=== PATIENT | female | born 1975 | race Caucasian/White ===

== ENCOUNTER → 2017-04-16 | Outpatient (CLI) | payer BC ==
--- NOTE | 2017-04-21 10:02 | MM ---
Reason for exam: screening (asymptomatic). Last mammogram was performed 5 years and 8 months ago. History: Taking hormonal contraceptives beginning at age 20. Physical Findings: A clinical breast exam by your physician is recommended on an annual basis and results should be correlated with mammographic findings. MG 3D Screening Mammo W/Cad Bilateral CC and MLO view(s) were taken. Prior study comparison: August 14, 2011, [facility] DIGITAL LEFT BREAST MAMMOGRAM w/CAD. August 11, 2011, bilateral digital screening mammo w/CAD. The breast tissue is heterogeneously dense. This may lower the sensitivity of mammography. No suspicious abnormality. No significant changes when compared with prior studies. ASSESSMENT: Negative, BI-RAD 1 RECOMMENDATION: Routine screening mammogram of both breasts in 1 year.
== END | disposition home or self-care (01) ==
LOC: RADMAMWWP 15:30
PROVIDERS: ATTEND Obstetrics & Gynecology
DX: Z12.31 Encounter for screening mammogram for malignant neoplasm of breast (principal)
CPT/HCPCS: 77063; 77067

== ENCOUNTER 2017-09-23 17:20 | Observation (INO) | payer BC ==
[2017-09-23] MEDS ORDERED: NITROGLYCERIN OINT 1 INCH/GM PACKET TOPICAL STA (18:33)
[2017-09-23] MEDS ORDERED: SODIUM CHLORIDE 0.9% 1,000 ML IV STA (18:33)
--- NOTE | 2017-09-23 18:58 | ED ---
Chest Pain HPI - General Chief Complaint: Chest Pain Stated Complaint: CHEST PAIN Time Seen by Provider: 09/23/17 18:24 Source: patient Mode of arrival: wheelchair Limitations: no limitations - History of Present Illness Initial Comments: 42 years old female comes in with a chest pain ongoing for about a off-and-on for 3 weeks she had EKG done at the family doctor's office there were some changes noticed that and she stated her EKG was abnormal and he has no history of heart disease in the past she is on a controls and she denies any tobacco use. She also complaining about the headache and dizziness off and on for the last 6 weeks she said her blurred vision in the right eye there was there for a few days then now is back to normal. I does complain about ongoing headache and chest pain no abdominal pain chest pain doesn't get worse with deep breaths no abdominal pain no frequency urgency dysuria no symptoms of TIA or CVA - Related Data Home Medications Medication Instructions Recorded Confirmed Norethindrone-E.estradiol-Iron 1 tab PO DAILY 09/23/17 09/23/17 [Junel Fe 1 mg-20 Mcg Tablet] Allergies Allergy/AdvReac Type Severity Reaction Status Date / Time Sulfa (Sulfonamide Allergy Rash/Hives Verified 09/23/17 18:49 Antibiotics) tetanus toxoid, adsorbed Allergy Swelling Verified 09/23/17 18:49 Review of Systems ROS Statement: Those systems with pertinent positive or pertinent negative responses have been documented in the HPI. ROS Other: All systems not noted in ROS Statement are negative. EKG Findings - EKG Comments: EKG Findings:: KG is normal sinus ventricular rate is 86 ID interval is 156 QRS duration is 98 QT/QTc is 380/454 review of this EKG does not reveal any ST elevation noticed ST depression in lead 2 and S2 depression in lead 3 and T wave inversion as well also noticed mild ST depression in V4 V5 and V6 Past Medical History Past Medical History: No Reported History History of Any Multi-Drug Resistant Organisms: None Reported Past Surgical History: No Surgical Hx Reported Past Psychological History: No Psychological Hx Reported Smoking Status: Never smoker Past Alcohol Use History: None Reported Past Drug Use History: None Reported - Past Family History Father Family Medical History: Thyroid Disorder General Exam - General Exam Comments Initial Comments: General: The patient is awake and alert, in no distress, and does not appear acutely ill. Skin: Skin is warm and dry and no rashes or lesions are noted. Eye: Pupils are equal, round and reactive to light, extra-ocular movements are intact; there is normal conjunctiva bilaterally. Ears, nose, mouth and throat: There are moist mucous membranes and no oral lesions. Neck: The neck is supple, there is no tenderness or JVD. Cardiovascular: There is a regular rate and rhythm. No murmur, rub or gallop is appreciated. Respiratory: To auscultation bilateral, no wheezing no rhonchi no distress respiratory morin noticed Gastrointestinal: Mildly tender right upper quadrant area Back: There is no tenderness to palpation in the midline. There is no obvious deformity. Musculoskeletal: Normal ROM, no tenderness, There is no pedal edema. There is no calf tenderness or swelling. No cords were appreciated. Neurological: CN II-XII intact, Cranial nerves III through XII are intact. There are no obvious motor or sensory deficits. Coordination appears grossly intact. Speech is normal. Psychiatric: Cooperative, appropriate mood & affect, normal judgment. Limitations: no limitations Course Vital Signs 09/23/17 09/23/17 09/23/17 17:35 18:57 20:30 Temperature 98.7 F Pulse Rate 88 89 78 Respiratory 18 16 16 Rate Blood Pressure 148/96 129/80 112/78 O2 Sat by Pulse 100 100 99 Oximetry Disposition Clinical Impression: Chest pain, Headache Disposition: ADMITTED IP TO THIS HOSP Condition: Good
[2017-09-23 19:00] VITALS: RESP 16
[2017-09-23 19:09] LABS: Basophils % (A) 0 %; Eosinophils # (A) 0.1 k/uL (0-0.7); Eosinophils % (A) 2 %; HCT 41.1 % (34.0-46.0); HGB 13.5 gm/dL (11.4-16.0); Lymphocytes % (A) 36 %; MCH 28.9 pg (25.0-35.0); MCHC 32.8 g/dL (31.0-37.0); MCV 88.2 fL (80.0-100.0); Monocytes # (A) 0.4 k/uL (0-1.0); Monocytes % (A) 7 %; Neutrophils # (A) 2.9 k/uL (1.3-7.7); Neutrophils % (A) 52 %; Platelet Count 254 k/uL (150-450); RBC 4.66 m/uL (3.80-5.40); RDW 12.7 % (11.5-15.5); WBC 5.6 k/uL (3.8-10.6)
[2017-09-23 19:17] LABS: Partial Thromboplastin Time 23.9 sec (22.0-30.0); Prothrombin Time 9.7 sec (9.0-12.0)
[2017-09-23 19:20] LABS: ALT 23 U/L (9-52); AST 28 U/L (14-36); Albumin 4.9 g/dL (3.5-5.0); Alkaline Phosphatase 62 U/L (38-126); Anion Gap 14 mmol/L; Blood Urea Nitrogen 11 mg/dL (7-17); Calcium 9.6 mg/dL (8.4-10.2); Carbon Dioxide 22 mmol/L (22-30); Chloride 104 mmol/L (98-107); Glucose 89 mg/dL (74-99); Sodium 140 mmol/L (137-145); Total Bilirubin 1.3 mg/dL (0.2-1.3); Total Protein 8.2 g/dL (6.3-8.2)
[2017-09-23] MEDS ORDERED: MORPHINE SULFATE 2 MG/ML SYRINGE IVP PRN (19:29)
--- NOTE | 2017-09-23 19:35 | XR ---
EXAMINATION TYPE: XR chest 2V DATE OF EXAM: 09/23/2017 COMPARISON: NONE HISTORY: Chest pain TECHNIQUE: Frontal and lateral views of the chest are obtained. FINDINGS: Heart and mediastinum are normal. Lungs are clear. Diaphragm is normal. There are chest le ads. Bony thorax is intact. IMPRESSION: Normal chest
--- NOTE | 2017-09-23 19:35 | CT ---
EXAMINATION TYPE: CT brain wo con DATE OF EXAM: 09/23/2017 COMPARISON: None HISTORY: Headache and chest pain. CT DLP: 735.2 mGycm. Automated Exposure Control for Dose Reduction was Utilized. TECHNIQUE: CT scan of the head is performed without contrast. FINDINGS: Ventricles and sulci appear normal. There is no mass effect nor midline shift. There is no sign of intracranial hemorrhage. The calvarium is intact. IMPRESSION: Negative CT scan of the brain.
[2017-09-23 19:39] LABS: Creatine Kinase 74 U/L (30-135)
[2017-09-23 19:52] LABS: Creatine Kinase MB <0.2 ng/mL (0.0-2.4); Troponin I <0.012 ng/mL (0.000-0.034)
[2017-09-23] MEDS ORDERED: ENOXAPARIN 80 MG/0.8 ML SYRINGE SQ STA (20:00)
[2017-09-23 22:35] VITALS: BMI 25.4
[2017-09-23] MEDS ORDERED: KETOROLAC 30 MG/ML 1 ML VIAL IVP PRN (23:07)
[2017-09-24] MEDS ORDERED: KETOROLAC 30 MG/ML 1 ML VIAL IVP SCH
[2017-09-24 01:40] LABS: Creatine Kinase 60 U/L (30-135)
[2017-09-24 01:53] LABS: Creatine Kinase MB <0.2 ng/mL (0.0-2.4); Troponin I <0.012 ng/mL (0.000-0.034)
[2017-09-24 07:19] LABS: Cholesterol 231 mg/dL (<200); HDL Cholesterol 73 mg/dL (40-60); LDL Cholesterol,Calculated 148 mg/dL (0-99); Triglycerides 51 mg/dL (<150)
[2017-09-24 07:29] LABS: Creatine Kinase 54 U/L (30-135)
[2017-09-24 07:42] LABS: Creatine Kinase MB <0.2 ng/mL (0.0-2.4); Troponin I <0.012 ng/mL (0.000-0.034)
[2017-09-24] MEDS ORDERED: ENOXAPARIN 80 MG/0.8 ML SYRINGE SQ SCH (09:00)
[2017-09-24] MEDS ORDERED: ASPIRIN 325 MG TAB PO SCH (09:00)
--- NOTE | 2017-09-24 10:47 | ECHOF ---
Referral Reason:chest pain MEASUREMENTS -------- HEIGHT: 167.6 cm WEIGHT: 71.7 kg BP: 109/71 RVIDd: 2.5 cm (< 3.3) IVSd: 0.9 cm (0.6 - 1.1) LVIDd: 4.2 cm (3.9 - 5.3) LVPWd: 0.8 cm (0.6 - 1.1) IVSs: 1.3 cm LVIDs: 2.7 cm LVPWs: 1.3 cm LA Diam: 2.6 cm (2.7 - 3.8) Ao Diam: 3.0 cm (2.0 - 3.7) AV Cusp: 1.8 cm (1.5 - 2.6) MV EXCURSION: 16.139 mm (> 18.000) MV EF SLOPE: 150 mm/s (70 - 150) EPSS: 0.2 cm MV E Trevin: 1.02 m/s MV DecT: 192 ms MV A Trevin: 0.74 m/s MV E/A Ratio: 1.38 FINDINGS -------- Sinus rhythm. This was a technically good study. The left ventricular size is normal. Left ventricular wall thickness is normal. Overall left vent ricular systolic function is normal with, an EF between 60 - 65 %. The right ventricle is normal in size and function. The left atrial size is normal. The right atrium is normal in size. The aortic valve is trileaflet and appears structurally normal. Mild mitral regurgitation is present. The tricuspid valve appears structurally normal. Trace/mild (physiologic) pulmonic regurgitation. The aortic root size is normal. Normal inferior vena cava with normal inspiratory collapse consistent with estimated right atrial pre ssure of 5 mmHg. There is no pericardial effusion. CONCLUSIONS -------- 1. Sinus rhythm. 2. This was a technically good study. 3. The left ventricular size is normal. 4. Left ventricular wall thickness is normal. 5. Overall left ventricular systolic function is normal with, an EF between 60 - 65 %. 6. The right ventricle is normal in size and function. 7. The left atrial size is normal. 8. The right atrium is normal in size. 9. The aortic valve is trileaflet and appears structurally normal. 10. Mild mitral regurgitation is present. 11. The tricuspid valve appears structurally normal. 12. Trace/mild (physiologic) pulmonic regurgitation. 13. The aortic root size is normal. 14. Normal inferior vena cava with normal inspiratory collapse consistent with estimated right atrial pressure of 5 mmHg. 15. There is no pericardial effusion. SAMPLE TESTER GRINDER: Tiffany Schuster RDCS
--- NOTE | 2017-09-24 11:21 | P.CRDCN ---
History of Present Illness History of present illness: Mrs. Frank is a pleasant 42-year-old female with no significant past medical history. She denies history of coronary artery disease, hypertension, diabetes mellitus or dyslipidemia. She also has no family history or premature heart disease. She has never seen a vegetable canner for any reason. We have been asked to see her in consultation for chest pain. She states she has been suffering with a headache off and on for the last 5 weeks. When she has a headache and lays down she notices a pounding in her chest like her heart is racing and she can feel her pulse in her head. Yesterday while at work she felt a pain in the mid-sternal region that felt like a bubble in her chest. The pain was intermittent and did not radiate to the arm, back, neck or jaw. She denies associated shortness of breath, nausea, vomiting or diaphoresis. She felt light headed and palpitations at the time of the pain as well. She is currently sitting up in bed in no acute distress and denies any further symptoms of chest pain. EKG reveals sinus mechanism with incomplete right bundle branch block pattern with non-specific ST abnormalities. Chest x-ray is negative for acute cardiopulmonary process. CT brain negative for an acute intracranial process. Laboratory data reviewed, hemoglobin 13.5, platelets 254, sodium 140, potassium 4.0, magnesium 2.0, creatinine 0.8, cardiac enzymes negative 3, LDL 148, HDL 73 , TSH 3.64. She takes control pills no daily cardiac medications. No old cardiac records to review. She has never had a heart catheterization or stress test. Review of Systems At the time of my exam: CONSTITUTIONAL: Denies fever. Denies chills. EYES: Denies blurred vision. Denies vision changes. Denies eye pain. EARS, NOSE, MOUTH & THROAT: Denies headache. Denies sore throat. Denies ear pain. CARDIOVASCULAR: Denies chest pain. Denies shortness of breath. Denies orthopnea. Denies PND. Denies palpitations. RESPIRATORY: Denies cough. GASTROINTESTINAL: Denies abdominal pain. Denies diarrhea. Denies constipation. Denies nausea. Denies vomiting. MUSCULOSKELETAL: Denies myalgias. INTEGUMENTARY: Denies pruitis. Denies rash. NEUROLOGIC: Denies numbness. Denies tingling. Denies weakness. PSYCHIATRIC: Denies anxiety. Denies depression. ENDOCRINE: Denies fatigue. Denies weight change. Denies polydipsia. Denies polyurina. GENITOURINARY: Denies burning, hematuria or urgency with micturation. HEMATOLOGIC: Denies history of anemia. Denies bleeding. Past Medical History Past Medical History: No Reported History Additional Past Medical History / Comment(s): migraines History of Any Multi-Drug Resistant Organisms: None Reported Past Surgical History: No Surgical Hx Reported Additional Past Anesthesia/Blood Transfusion Reaction / Comment(s): never had anesthesia Past Psychological History: No Psychological Hx Reported Smoking Status: Never smoker Past Alcohol Use History: None Reported Past Drug Use History: None Reported - Past Family History Father Family Medical History: Thyroid Disorder Medications and Allergies Home Medications Medication Instructions Recorded Confirmed Type Norethindrone-E.estradiol-Iron 1 tab PO DAILY 09/23/17 09/23/17 History [Junel Fe 1 mg-20 Mcg Tablet] Allergies Allergy/AdvReac Type Severity Reaction Status Date / Time Sulfa (Sulfonamide Allergy Rash/Hives Verified 09/23/17 18:49 Antibiotics) tetanus toxoid, adsorbed Allergy Swelling Verified 09/23/17 18:49 Physical Exam Vitals: Vital Signs Temp Pulse Pulse Resp BP BP Pulse Ox 09/24/17 08:00 88 16 134/84 99 09/24/17 03:37 60 16 09/24/17 03:27 98.3 F 67 16 109/71 98 09/24/17 00:00 98.1 F 68 16 120/82 97 09/23/17 21:30 98.7 F 70 16 121/79 98 09/23/17 20:30 78 16 112/78 99 09/23/17 18:57 89 16 129/80 100 09/23/17 17:35 98.7 F 88 18 148/96 100 Intake and Output 09/23/17 09/24/17 09/24/17 22:59 06:59 14:59 Other: Voiding Method Toilet Toilet # Voids 3 Weight 71.668 kg Blood pressure 109/71 heart rate 67 afebrile maintaining oxygen saturation on room air GENERAL: This is a 42-year-old female in no apparent distress at the time of my examination. HEENT: Head is atraumatic, normocephalic. Pupils are equal, round. Sclerae anicteric. Conjunctivae are clear. Mucous membranes of the mouth are moist. Neck is supple. There is no jugular venous distention. No carotid bruit is heard. LUNGS: Clear to auscultation no wheezes, rales or rhonchi. No chest wall tenderness is noted on palpation or with deep breathing. HEART: Regular rate and rhythm without murmurs, rubs or gallops. S1 and S2 heard. ABDOMEN: Soft, nontender. Bowel sounds are heard. No organomegaly noted. EXTREMITIES: No evidence of peripheral edema and no calf tenderness noted. VASCULAR: Radial and dorsalis pedis pulses palpated, no evidence of clubbing. NEUROLOGIC: Patient is awake, alert and oriented x3. Results 09/23/17 17:50 09/23/17 17:50 Cardiac Enzymes 09/23/17 09/23/17 09/24/17 Range/Units 17:50 17:50 00:58 AST 28 (14-36) U/L CK-MB (CK-2) <0.2 <0.2 (0.0-2.4) ng/mL Troponin I <0.012 <0.012 (0.000-0.034) ng/mL 09/24/17 Range/Units 06:16 AST (14-36) U/L CK-MB (CK-2) <0.2 (0.0-2.4) ng/mL Troponin I <0.012 (0.000-0.034) ng/mL Coagulation 09/23/17 Range/Units 17:50 PT 9.7 (9.0-12.0) sec APTT 23.9 (22.0-30.0) sec Lipids 09/24/17 Range/Units 06:16 Triglycerides 51 (<150) mg/dL Cholesterol 231 H (<200) mg/dL HDL Cholesterol 73 H (40-60) mg/dL CBC 09/23/17 Range/Units 17:50 WBC 5.6 (3.8-10.6) k/uL RBC 4.66 (3.80-5.40) m/uL Hgb 13.5 (11.4-16.0) gm/dL Hct 41.1 (34.0-46.0) % Plt Count 254 (150-450) k/uL Comprehensive Metabolic Panel 09/23/17 Range/Units 17:50 Sodium 140 (137-145) mmol/L Potassium 4.0 (3.5-5.1) mmol/L Chloride 104 (98-107) mmol/L Carbon Dioxide 22 (22-30) mmol/L BUN 11 (7-17) mg/dL Creatinine 0.80 (0.52-1.04) mg/dL Glucose 89 (74-99) mg/dL Calcium 9.6 (8.4-10.2) mg/dL AST 28 (14-36) U/L ALT 23 (9-52) U/L Alkaline Phosphatase 62 (38-126) U/L Total Protein 8.2 (6.3-8.2) g/dL Albumin 4.9 (3.5-5.0) g/dL Current Medications Generic Name Dose Route Start Last Admin Trade Name Freq PRN Reason Stop Dose Admin Aspirin 325 mg 09/24/17 09:00 09/24/17 10:43 Aspirin PO 325 mg DAILY MARLENE Administration Enoxaparin Sodium 70 mg 09/24/17 09:00 09/24/17 10:43 Lovenox SQ 70 mg Q12HR MARLENE Administration Morphine Sulfate 2 mg 09/23/17 19:29 Morphine Sulfate (Inj) IVP Q5M PRN Chest Pain Intake and Output 09/23/17 09/24/17 09/24/17 22:59 06:59 14:59 Other: Voiding Method Toilet Toilet # Voids 3 Weight 71.668 kg 09/23/17 17:50 09/23/17 17:50 Assessment and Plan Assessment: ASSESSMENT Chest pain, atypical. An acute coronary event has been ruled out. Palpitations Headache Dyslipidemia PLAN Obtain 2-D echocardiogram and Doppler study to assess cardiac structure and function. Perform stress echocardiogram to assess for stress induced cardiac ischemia. Recommend lifestyle modifications decrease LDL cholesterol. Event monitor will be set up through the office as an outpatient. Follow up with Dr. Pulido in 5 weeks. Thank you kindly for this consultation. Nurse Practitioner note has been reviewed, I agree with a documented findings and plan of care. Patient was seen and examined.
[2017-09-24 11:37] VITALS: BP 94/60; PULSE 85; TEMP 98.7
--- NOTE | 2017-09-24 15:41 | ECHOS ---
STRESS ECHOCARDIOGRAM INDICATION: Chest pain. MEDICATIONS: @@ BASELINE HEART RATE: @@ BASELINE BLOOD PRESSURE: @@ MAXIMUM HEART RATE: @@ MAXIMUM BLOOD PRESSURE: @@ 85% MPHR: @@ 100% MPHR: @@ METS: 9.0 MAXIMUM STAGE REACHED: @@ TOTAL EXERCISE TIME: 8:00 CLINICAL INFORMATION: Baseline EKG shows sinus rhythm, normal axis, normal intervals. Patient exercised on Slade protocol for a total of 8 minutes achieving 9 METs, 94% of predicted maximal heart rate without chest pain. At peak exercise there was [address]-segment depression noted. Baseline echo shows normal left ventricular size wall motion systolic function. Postexercise, there is normal hyperdynamic response of all segments of myocardium noted. CONCLUSION: 1. Good exercise tolerance. 2. Nondiagnostic EKG changes with exercise. 3. Negative stress echo. JNOAH / ILYAN: [id number] /
--- NOTE | 2017-09-24 15:47 | P.HPIM ---
History of Present Illness H&P Date: 09/24/17 Chief Complaint: Chest pain HISTORY AND PHYSICAL AND DISCHARGE SUMMARY: This is a 42-year-old female patient of Dr. Flores with a past medical history of migraine headaches. She states that about 3 weeks ago she started having some midsternal chest pain that was coming and going. She denies any radiation of pain, no worsening with deep breath or with activity. She was seen by Dr. Victoria in her EKG was not normal. She was post had a Holter monitor but it could not be arranged for 2 weeks. Yesterday she was not feeling well so she decided that she needs to come in and have herself checked. She also complains of right thigh blurred vision since August 16. She has seen an eye doctor, human resources advisor and her prescription was changed and by 2 weeks later her prescription was back to normal. She states it was related to a stigmatism. Her pressures were checked in the office and those were okay. She has also had headache for the past 6 weeks feeling like pulses in the upper forehead area but never goes away. She also complains of dizziness and she is unable to sleep which is not new for her for life. She feels like she is falling when she is trying to sleep. She also feels that she is in a fall but noted that this went away 2 days ago and she was left with a headache. She is scheduled for an MRI of the brain on October 07. Patient presented to [facility] emergency center for evaluation. Her troponins have been negative on 3 draws. Triglycerides 51, cholesterol 231, LDL 148, HDL 73, sed rate 8. CT of the brain showed no acute findings. Chest x-ray was normal. Echocardiogram reveals EF of 60-65% with mild mitral regurgitation, trace pulmonic regurgitation. Patient was seen by cardiology and underwent stress test which was negative and she was cleared for discharge home. Plan is for her to follow- up with Dr. Pulido and 5 weeks. There was also a consult in place with Dr. Ojeda which we canceled with plan for patient to undergo her MRI of the brain and follow-up with Dr. Ojeda as an outpatient. Patient was anxious to go home versus waiting for another consult. Patient was discharged home in stable condition. Patient also relates that she does have blood pressures that will jump from 144/94-117/76. These are most likely changes related to pain. Discharge Medication List Norethindrone-E.estradiol-Iron [Junel Fe 1 mg-20 Mcg Tablet] 1 tab PO DAILY 04/11 [History] Cyclobenzaprine [Flexeril] 10 mg PO HS #30 tab 09/24/17 [Rx] Isomethept/Dichlphn/Acetaminop [Midrin] 1 each PO Q6H #12 capsule 09/24/17 [Rx] Melatonin 3 mg PO HS #30 tablet 09/24/17 [Rx] Review of Systems All systems: negative Constitutional: Denies chills, Denies fever, Denies poor appetite, Denies weight loss Eyes: right blurred vision, denies pain Ears, nose, mouth and throat: Reports headache, Denies mouth pain, Denies sore throat Cardiovascular: Reports chest pain, Denies decreased exercise tolerance, Denies dyspnea on exertion, Denies leg edema, Denies lightheadedness, Denies palpitations, Denies shortness of breath, Denies syncope Respiratory: Denies cough, Denies cough with sputum, Denies dyspnea, Denies excessive sputum, Denies hemoptysis, Denies home oxygen, Denies wheezing Gastrointestinal: Denies abdominal pain, Denies diarrhea, Denies nausea, Denies vomiting Genitourinary: Denies dysuria, Denies hematuria Musculoskeletal: Denies myalgias Integumentary: Denies pruritus, Denies rash Neurological: Denies numbness, Denies weakness Psychiatric: Denies anxiety, Denies depression Endocrine: Denies fatigue, Denies weight change Past Medical History Past Medical History: No Reported History Additional Past Medical History / Comment(s): migraines History of Any Multi-Drug Resistant Organisms: None Reported Past Surgical History: No Surgical Hx Reported Additional Past Anesthesia/Blood Transfusion Reaction / Comment(s): never had anesthesia Past Psychological History: No Psychological Hx Reported Smoking Status: Never smoker Past Alcohol Use History: None Reported Additional Past Alcohol Use History / Comment(s): Patient is a lifelong nonsmoker. She denies any illicit drug use or alcohol use. She lives at home with her . She works as a dental hygienist. Past Drug Use History: None Reported - Past Family History Father Family Medical History: Thyroid Disorder Additional Family Medical History / Comment(s): Father is alive at age 75 with history of paranoid schizophrenia bipolar disorder. Mother Additional Family Medical History / Comment(s): Mother is alive at age 63 with history of hypertension, diabetes, sarcoidosis. Sister(s) Additional Family Medical History / Comment(s): Patient has 1 sister with thyroid disorder and borderline personality disorder. Brother(s) Additional Family Medical History / Comment(s): Patient does not have any brothers. Medications and Allergies Home Medications Medication Instructions Recorded Confirmed Type Norethindrone-E.estradiol-Iron 1 tab PO DAILY 09/23/17 09/23/17 History [Junel Fe 1 mg-20 Mcg Tablet] Cyclobenzaprine [Flexeril] 10 mg PO HS #30 tab 09/24/17 Rx Isomethept/Dichlphn/Acetaminop 1 each PO Q6H #12 capsule 09/24/17 Rx [Midrin] Melatonin 3 mg PO HS #30 tablet 09/24/17 Rx Allergies Allergy/AdvReac Type Severity Reaction Status Date / Time Sulfa (Sulfonamide Allergy Rash/Hives Verified 09/23/17 18:49 Antibiotics) tetanus toxoid, adsorbed Allergy Swelling Verified 09/23/17 18:49 Physical Exam Vitals: Vital Signs Temp Pulse Pulse Resp BP BP Pulse Ox 09/24/17 08:00 88 16 134/84 99 09/24/17 03:37 60 16 09/24/17 03:27 98.3 F 67 16 109/71 98 09/24/17 00:00 98.1 F 68 16 120/82 97 09/23/17 21:30 98.7 F 70 16 121/79 98 09/23/17 20:30 78 16 112/78 99 09/23/17 18:57 89 16 129/80 100 09/23/17 17:35 98.7 F 88 18 148/96 100 Intake and Output 09/23/17 09/24/17 09/24/17 22:59 06:59 14:59 Other: Voiding Method Toilet Toilet # Voids 3 Weight 71.668 kg Gen: This is a 42-year-old female. She is in bed and appears to be comfortable and in no acute distress. HEENT: Head is atraumatic, normocephalic. Pupils equal, round. Sclerae is anicteric. NECK: Supple. No JVD. No lymphadenopathy. No thyromegaly. LUNGS: Clear to auscultation. No wheezes or rhonchi. No intercostal retractions. HEART: Regular rate and rhythm. No murmur. ABDOMEN: Soft. Bowel sounds are present. No masses. No tenderness. EXTREMITIES: No pedal edema. No calf tenderness. NEUROLOGICAL: Patient is awake, alert and oriented x3. Cranial nerves 2 through 12 are grossly intact. Results CBC & Chem 7: 09/23/17 17:50 09/23/17 17:50 Labs: Abnormal Lab Results - Last 24 Hours (Table) 09/24/17 Range/Units 06:16 Cholesterol 231 H (<200) mg/dL LDL Cholesterol, Calc 148 H (0-99) mg/dL HDL Cholesterol 73 H (40-60) mg/dL Thrombosis Risk Factor Assmnt - DVT/VTE Prophylaxis DVT/VTE Prophylaxis: Pharmacologic Prophylaxis ordered - Choose All That Apply Each Factor Represents 1 point: Age 41-60 years Thrombosis Risk Factor Assessment Total Risk Factor Score: 1 Thrombosis Risk Factor Assessment Level: Low Risk Assessment and Plan Plan: 1. Chest pain, resolved with negative stress test. Patient to follow-up with Dr. Salcido in 5 weeks. 2. Headaches ongoing for the past 6 weeks. She has an MRI of the brain scheduled for October 07 which we will plan to change to MRI of the brain with contrast. Patient to then follow-up with Dr. Ojeda after MRI is completed. Patient has been instructed to avoid chewing that would irritate TMJ. 3. Possible arrhythmia. Patient is to have a Holter monitor placed in 2 weeks. 4. Hyperlipidemia. 5. Blurred vision in the right eye possibly related to stigmatism. 6. Labile blood pressure readings. These are most likely related to pain. Medications addressed for home. 7. Insomnia possibly secondary to pain. Patient as observation status. Discharge plan: Return home Impression and plan of care have been directed as dictated by the signing physician. Silvina Richter nurse practitioner acting as scribe for signing physician.
== END 2017-09-24 13:14 | disposition home or self-care (01) ==
LOC: EC 17:20 → 3OBS 19:29
PROVIDERS: ADMIT Family Medicine; ATTEND Family Medicine
DX: R07.9 Chest pain, unspecified (principal); R51 Headache; E78.5 Hyperlipidemia, unspecified; H53.8 Other visual disturbances; R09.89 Other specified symptoms and signs involving the circulatory and respiratory systems; G47.00 Insomnia, unspecified; R07.2 Precordial pain; R00.2 Palpitations; R42 Dizziness and giddiness; R94.31 Abnormal electrocardiogram [ECG] [EKG]; G43.909 Migraine, unspecified, not intractable, without status migrainosus; Z81.8 Family history of other mental and behavioral disorders; Z83.3 Family history of diabetes mellitus; Z82.49 Family history of ischemic heart disease and other diseases of the circulatory system; Z83.49 Family history of other endocrine, nutritional and metabolic diseases; Z79.3 Long term (current) use of hormonal contraceptives; Z79.899 Other long term (current) drug therapy; Z88.2 Allergy status to sulfonamides; Z88.7 Allergy status to serum and vaccine
CPT/HCPCS: 99285 ×2; 96361 ×8; 96372 ×3; 96374; 36415; 93005; 93306; 93351; 80061; 80053; 85652; 84443; 82550 ×2; 82553 ×2; 83735; 84484 ×2; 85025; 85610; 85730; 71046; 70450; G0378 ×2; J1650 ×2; J1885

== ENCOUNTER → 2017-09-30 | Outpatient (CLI) | payer BC ==
--- NOTE | 2017-10-08 14:25 | HM ---
HOLTER MONITOR REPORT DATE OF SERVICE: 09/30/2017 The patient was monitored for 48 hours. The baseline rhythm appeared to be a sinus mechanism with a minimum heart rate of 50 beats per minute, max heart rate 144 beats per minute, average heart rate of 80 beats per minute. Ventricular ectopic events were presented in less than 1% of the total beats count. Supraventricular ectopic events were presented also rarely. No evidence of sinus pause or sinus arrest. No evidence of any advanced AV block seen. The patient reported symptoms of fluttering in the chest and the symptoms were associated with sinus tachycardia. CONCLUSIONS: 1. Sinus rhythm as a baseline mechanism. 2. Rare ventricular ectopic events. 3. Rare supraventricular ectopic events. 4. There is no evidence of sinus pause or sinus arrest. 5. There is no evidence of any advanced AV block. 6. The patient's symptoms of heart fluttering were associated with sinus tachycardia only. MMODL / IJN: [id number] /
== END | disposition home or self-care (01) ==
LOC: RADECHMAIN 11:34
PROVIDERS: ATTEND Family Medicine
DX: R00.2 Palpitations (principal); R00.0 Tachycardia, unspecified
CPT/HCPCS: 93225; 93226

== ENCOUNTER 2017-10-17 13:49 | Emergency (ER) | payer BC ==
[2017-10-17] MEDS ORDERED: SODIUM CHLORIDE 0.9% 1,000 ML IV STA (14:23)
[2017-10-17 14:44] LABS: Basophils % (A) 1 %; Eosinophils % (A) 1 %; HCT 40.5 % (34.0-46.0); HGB 13.5 gm/dL (11.4-16.0); Lymphocytes # (A) 1.8 k/uL (1.0-4.8); Lymphocytes % (A) 30 %; MCH 29.7 pg (25.0-35.0); MCHC 33.2 g/dL (31.0-37.0); MCV 89.4 fL (80.0-100.0); Mean Platelet Volume 9.1; Monocytes # (A) 0.4 k/uL (0-1.0); Monocytes % (A) 6 %; Neutrophils # (A) 3.6 k/uL (1.3-7.7); Neutrophils % (A) 60 %; Platelet Count 251 k/uL (150-450); RBC 4.53 m/uL (3.80-5.40); RDW 12.9 % (11.5-15.5); WBC 5.9 k/uL (3.8-10.6)
[2017-10-17 14:52] LABS: Partial Thromboplastin Time 23.2 sec (22.0-30.0); Prothrombin Time 9.5 sec (9.0-12.0)
[2017-10-17 14:54] LABS: ALT 19 U/L (9-52); AST 18 U/L (14-36); Albumin 4.8 g/dL (3.5-5.0); Alkaline Phosphatase 51 U/L (38-126); Anion Gap 14 mmol/L; Blood Urea Nitrogen 10 mg/dL (7-17); Calcium 9.5 mg/dL (8.4-10.2); Carbon Dioxide 21 mmol/L (22-30); Chloride 106 mmol/L (98-107); Glucose 116 mg/dL (74-99); Magnesium 2.1 mg/dL (1.6-2.3); Potassium 3.8 mmol/L (3.5-5.1); Sodium 141 mmol/L (137-145); Total Bilirubin 1.1 mg/dL (0.2-1.3); Total Protein 8.2 g/dL (6.3-8.2)
[2017-10-17 15:04] LABS: Creatine Kinase 60 U/L (30-135)
--- NOTE | 2017-10-17 15:13 | ED ---
Arrhythmia/Palpitations HPI - General Chief Complaint: Arrhythmia/Palpitations Stated Complaint: Palpitations Time Seen by Provider: 10/17/17 14:09 Source: patient Mode of arrival: ambulatory Limitations: no limitations - History of Present Illness Initial Comments: 42 years O female comes in with a palpitation and she was seen in the ER a few weeks ago was admitted seen cardiology had a stress test done had down echocardiogram done and she was on home on a Holter. She she is complaining about dizziness chest pain and irregular heartbeat denies any shortness of breath no pleuritic chest pain no fever no chills she is not coughing up any phlegm. Eyes any abdominal pain no frequency urgency dysuria no symptoms of TIA or CVA - Related Data Home Medications Medication Instructions Recorded Confirmed Norethindrone-E.estradiol-Iron 1 tab PO DAILY 09/23/17 10/17/17 [Junel Fe 1 mg-20 Mcg Tablet] Previous Rx's Medication Instructions Recorded Melatonin 3 mg PO HS #30 tablet 09/24/17 Atenolol [Tenormin] 12.5 mg PO DAILY #30 tab 10/17/17 Allergies Allergy/AdvReac Type Severity Reaction Status Date / Time Sulfa (Sulfonamide Allergy Rash/Hives Verified 10/17/17 14:31 Antibiotics) tetanus toxoid, adsorbed Allergy Swelling Verified 10/17/17 14:31 Review of Systems ROS Statement: Those systems with pertinent positive or pertinent negative responses have been documented in the HPI. ROS Other: All systems not noted in ROS Statement are negative. Past Medical History Past Medical History: No Reported History Additional Past Medical History / Comment(s): migraines, possible (R) bundle branch block History of Any Multi-Drug Resistant Organisms: None Reported Past Surgical History: No Surgical Hx Reported Additional Past Anesthesia/Blood Transfusion Reaction / Comment(s): never had anesthesia Past Psychological History: No Psychological Hx Reported Smoking Status: Never smoker Past Alcohol Use History: None Reported Past Drug Use History: None Reported - Past Family History Father Family Medical History: Thyroid Disorder Additional Family Medical History / Comment(s): Father is alive at age 75 with history of paranoid schizophrenia bipolar disorder. Mother Additional Family Medical History / Comment(s): Mother is alive at age 63 with history of hypertension, diabetes, sarcoidosis. Sister(s) Additional Family Medical History / Comment(s): Patient has 1 sister with thyroid disorder and borderline personality disorder. Brother(s) Additional Family Medical History / Comment(s): Patient does not have any brothers. General Exam - General Exam Comments Initial Comments: General: The patient is awake and alert, in no distress, and does not appear acutely ill. Skin: Skin is warm and dry and no rashes or lesions are noted. Eye: Pupils are equal, round and reactive to light, extra-ocular movements are intact; there is normal conjunctiva bilaterally. Ears, nose, mouth and throat: There are moist mucous membranes and no oral lesions. Neck: The neck is supple, there is no tenderness or JVD. Cardiovascular: Respiratory: To auscultation bilateral, no wheezing no rhonchi no distress respiratory morin noticed Gastrointestinal: Soft, non-distended, non-tender abdomen without masses or organomegaly noted. There is no rebound or guarding present. Bowel sounds are unremarkable. Back: There is no tenderness to palpation in the midline. There is no obvious deformity. Musculoskeletal: Normal ROM, no tenderness, There is no pedal edema. There is no calf tenderness or swelling. No cords were appreciated. Neurological: CN II-XII intact, Cranial nerves III through XII are intact. There are no obvious motor or sensory deficits. Coordination appears grossly intact. Speech is normal. Psychiatric: Cooperative, appropriate mood & affect, normal judgment. Limitations: no limitations Course Vital Signs 10/17/17 10/17/17 10/17/17 13:50 14:48 15:22 Temperature 98.0 F Pulse Rate 123 H 95 Pulse Rate [ 92 Apical] Respiratory 20 18 Rate Blood Pressure 137/85 113/77 O2 Sat by Pulse 100 100 Oximetry Upon reassessment noticed that term as CBC, CMP, troponin, EKG, d-dimer unremarkable chest x-ray looked normal to me that but there is no radiology report I did discuss that with the Dr. Ifeanyi Suggs recommended that since he has a lot of workup done cardiology morin she can go home with a small dose of beta blockers and will put her on now atenolol 25 mg half tablet daily and then she will call Dr. Boudreaux's office and then she will call Dr. Salcido's office and she is advised to return if the symptoms get worse EKG Findings - EKG Comments: EKG Findings:: KG is sinus tach ventricular rate is 16 CT interval is 150 QRS duration is 94 QT/QTc is 338/448 review of this EKG reveals some PVCs, noticed some ST depression in lead #2 noticed right bundle branch block and nonspecific ST abnormality noticed Medical Decision Making - Lab Data Result diagrams: 10/17/17 14:35 10/17/17 14:35 Lab Results 10/17/17 10/17/17 10/17/17 Range/Units 14:35 14:35 14:35 WBC 5.9 (3.8-10.6) k/uL RBC 4.53 (3.80-5.40) m/uL Hgb 13.5 (11.4-16.0) gm/dL Hct 40.5 (34.0-46.0) % MCV 89.4 (80.0-100.0) fL MCH 29.7 (25.0-35.0) pg MCHC 33.2 (31.0-37.0) g/dL RDW 12.9 (11.5-15.5) % Plt Count 251 (150-450) k/uL Neutrophils % 60 % Lymphocytes % 30 % Monocytes % 6 % Eosinophils % 1 % Basophils % 1 % Neutrophils # 3.6 (1.3-7.7) k/uL Lymphocytes # 1.8 (1.0-4.8) k/uL Monocytes # 0.4 (0-1.0) k/uL Eosinophils # 0.0 (0-0.7) k/uL Basophils # 0.0 (0-0.2) k/uL PT (9.0-12.0) sec INR (<1.2) APTT (22.0-30.0) sec D-Dimer (<0.60) mg/L FEU Sodium 141 (137-145) mmol/L Potassium 3.8 (3.5-5.1) mmol/L Chloride 106 (98-107) mmol/L Carbon Dioxide 21 L (22-30) mmol/L Anion Gap 14 mmol/L BUN 10 (7-17) mg/dL Creatinine 0.80 (0.52-1.04) mg/dL Est GFR (CKD-EPI)AfAm >90 (>60 ml/min/1.73 sqM) Est GFR (CKD-EPI)NonAf >90 (>60 ml/min/1.73 sqM) Glucose 116 H (74-99) mg/dL Calcium 9.5 (8.4-10.2) mg/dL Magnesium 2.1 (1.6-2.3) mg/dL Total Bilirubin 1.1 (0.2-1.3) mg/dL AST 18 (14-36) U/L ALT 19 (9-52) U/L Alkaline Phosphatase 51 (38-126) U/L Total Creatine Kinase 60 (30-135) U/L CK-MB (CK-2) <0.2 (0.0-2.4) ng/mL CK-MB (CK-2) Rel Index Troponin I <0.012 (0.000-0.034) ng/mL Total Protein 8.2 (6.3-8.2) g/dL Albumin 4.8 (3.5-5.0) g/dL TSH 3.000 (0.465-4.680) mIU/L Urine Opiates Screen (NotDetected) Ur Oxycodone Screen (NotDetected) Urine Methadone Screen (NotDetected) Ur Propoxyphene Screen (NotDetected) Ur Barbiturates Screen (NotDetected) U Tricyclic Antidepress (NotDetected) Ur Phencyclidine Scrn (NotDetected) Ur Amphetamines Screen (NotDetected) U Methamphetamines Scrn (NotDetected) U Benzodiazepines Scrn (NotDetected) Urine Cocaine Screen (NotDetected) U Marijuana (THC) Screen (NotDetected) 10/17/17 10/17/17 10/17/17 Range/Units 14:35 14:36 15:00 WBC (3.8-10.6) k/uL RBC (3.80-5.40) m/uL Hgb (11.4-16.0) gm/dL Hct (34.0-46.0) % MCV (80.0-100.0) fL MCH (25.0-35.0) pg MCHC (31.0-37.0) g/dL RDW (11.5-15.5) % Plt Count (150-450) k/uL Neutrophils % % Lymphocytes % % Monocytes % % Eosinophils % % Basophils % % Neutrophils # (1.3-7.7) k/uL Lymphocytes # (1.0-4.8) k/uL Monocytes # (0-1.0) k/uL Eosinophils # (0-0.7) k/uL Basophils # (0-0.2) k/uL PT 9.5 (9.0-12.0) sec INR 1.0 (<1.2) APTT 23.2 (22.0-30.0) sec D-Dimer 0.50 (<0.60) mg/L FEU Sodium (137-145) mmol/L Potassium (3.5-5.1) mmol/L Chloride (98-107) mmol/L Carbon Dioxide (22-30) mmol/L Anion Gap mmol/L BUN (7-17) mg/dL Creatinine (0.52-1.04) mg/dL Est GFR (CKD-EPI)AfAm (>60 ml/min/1.73 sqM) Est GFR (CKD-EPI)NonAf (>60 ml/min/1.73 sqM) Glucose (74-99) mg/dL Calcium (8.4-10.2) mg/dL Magnesium (1.6-2.3) mg/dL Total Bilirubin (0.2-1.3) mg/dL AST (14-36) U/L ALT (9-52) U/L Alkaline Phosphatase (38-126) U/L Total Creatine Kinase (30-135) U/L CK-MB (CK-2) (0.0-2.4) ng/mL CK-MB (CK-2) Rel Index Troponin I (0.000-0.034) ng/mL Total Protein (6.3-8.2) g/dL Albumin (3.5-5.0) g/dL TSH (0.465-4.680) mIU/L Urine Opiates Screen Not Detected (NotDetected) Ur Oxycodone Screen Not Detected (NotDetected) Urine Methadone Screen Not Detected (NotDetected) Ur Propoxyphene Screen Not Detected (NotDetected) Ur Barbiturates Screen Not Detected (NotDetected) U Tricyclic Antidepress Not Detected (NotDetected) Ur Phencyclidine Scrn Not Detected (NotDetected) Ur Amphetamines Screen Not Detected (NotDetected) U Methamphetamines Scrn Not Detected (NotDetected) U Benzodiazepines Scrn Not Detected (NotDetected) Urine Cocaine Screen Not Detected (NotDetected) U Marijuana (THC) Screen Not Detected (NotDetected) Disposition Clinical Impression: Palpitation, Tachycardia Disposition: HOME SELF-CARE Condition: Good Instructions: Palpitations (ED) Prescriptions: Atenolol [Tenormin] 12.5 mg PO DAILY #30 tab Is patient prescribed a controlled substance at d/c from ED?: No Referrals: Chandu Flores MD [Primary Care Provider] - 1-2 days
[2017-10-17 15:18] LABS: Creatine Kinase MB <0.2 ng/mL (0.0-2.4); Troponin I <0.012 ng/mL (0.000-0.034)
[2017-10-17 15:23] VITALS: RESP 18
[2017-10-17 15:48] LABS: Amphetamine Screen,Urine Not Detected (NotDetected); Barbiturate Screen,Urine Not Detected (NotDetected); Benzodiazepines Screen,Urine Not Detected (NotDetected); Cocaine Screen,Urine Not Detected (NotDetected); Methadone Screen, Urine Not Detected (NotDetected); Opiate Screen,Urine Not Detected (NotDetected); Oxycodone Screen, Urine Not Detected (NotDetected); Phencyclidine Screen,Urine Not Detected (NotDetected); Tricyclic Antidepressant,Urine Not Detected (NotDetected); Urn Cannabinoid Scrn Not Detected (NotDetected)
--- NOTE | 2017-10-17 16:24 | XR ---
EXAMINATION TYPE: XR chest 2V DATE OF EXAM: 10/17/2017 COMPARISON: NONE HISTORY: chest pain TECHNIQUE: Frontal and lateral views of the chest are obtained. FINDINGS: There is no focal air space opacity, pleural effusion, or pneumothorax seen. The cardiac silhouette size is within normal limits. The osseous structures are intact. IMPRESSION: No acute cardiopulmonary process.
[2017-10-17] MEDS ORDERED: ATENOLOL 12.5 MG TAB PO STA (16:35)
[2017-10-17 17:03] VITALS: BP 106/76; PULSE 87; TEMP 97.7
== END 2017-10-17 17:03 | disposition home or self-care (01) ==
LOC: EC 13:49
DX: R00.2 Palpitations (principal); R00.0 Tachycardia, unspecified; R42 Dizziness and giddiness; R07.9 Chest pain, unspecified; Z79.3 Long term (current) use of hormonal contraceptives; Z88.2 Allergy status to sulfonamides; Z88.7 Allergy status to serum and vaccine
CPT/HCPCS: 36415; 71046; 80053; 80306; 82550; 82553; 83735; 84443; 84484; 85025; 85379; 85610; 85730; 93005; 96360; 96361; 99285

== ENCOUNTER → 2017-11-10 | Outpatient (CLI) | payer BC ==
--- NOTE | 2017-11-10 11:39 | US ---
EXAMINATION TYPE: US venous doppler duplex LE DATE OF EXAM: 11/10/2017 11:24 AM COMPARISON: NONE CLINICAL HISTORY: R79.1 Abnormal coagulation profile. SIDE PERFORMED: Bilateral TECHNIQUE: The lower extremity deep venous system is examined utilizing real time linear array sonog jeronimo with graded compression, doppler sonography and color-flow sonography. VESSELS IMAGED: External Iliac Vein (EIV) Common Femoral Vein Deep Femoral Vein Greater Saphenous Vein * Femoral Vein Popliteal Vein Small Saphenous Vein * Proximal Calf Veins (* superficial vessels) There is normal flow, compressibility, vascular waveforms. Right Leg: Negative for DVT Left Leg: Negative for DVT IMPRESSION: No evident deep venous thrombosis at or above the knees. Follow-up as indicated.
--- NOTE | 2017-11-10 12:03 | CT ---
EXAMINATION TYPE: CT angio chest DATE OF EXAM: 11/10/2017 COMPARISON: NONE HISTORY: Dizziness, elevated d dimer, irregular heartbeat CT DLP: 238 mGycm. Automated Exposure Control for Dose Reduction was Utilized. CONTRAST: CTA scan of the thorax is performed with IV Contrast, patient injected with 73 mL of Isovue 370, pulm onary embolism protocol. MIP Images are created on CT scanner and reviewed. FINDINGS: LUNGS: The lungs are grossly clear, there is no concerning parenchymal mass or nodule identified. T here is no pleural effusion or pneumothorax seen. The tracheobronchial tree is patent. MEDIASTINUM: There is satisfactory enhancement of the pulmonary artery and its branches, there is no CT evidence for pulmonary embolism. There are no greater than 1 cm hilar or mediastinal lymph nodes. No cardiomegaly or pericardial effusion is seen. Ascending aorta measures up to 3.5 cm diameter at level of main pulmonary artery bifurcation axial image 57. OTHER: No additional significant abnormality is seen. IMPRESSION: No CT evidence for acute pulmonary embolism. No acute pulmonary process.
== END | disposition home or self-care (01) ==
LOC: RADCTMAIN 10:33
PROVIDERS: ATTEND Family Medicine
DX: R79.1 Abnormal coagulation profile (principal)
CPT/HCPCS: 93970; 71275; Q9967

== ENCOUNTER → 2018-03-25 | Outpatient (CLI) | payer BC ==
--- NOTE | 2018-03-26 09:27 | CT ---
EXAMINATION TYPE: CT abdomen pelvis w con DATE OF EXAM: 03/25/2018 HISTORY: abdominal/pelvic pain X 3-[address] DLP: 691.3mGycm Automated Exposure Control for Dose Reduction was Utilized. CONTRAST: CT scan of the abdomen and pelvis is performed with oral and with IV Contrast, patient injected with 100 mL of Isovue 300. COMPARISON: None FINDINGS: LUNG BASES: No significant abnormality is appreciated. LIVER/GB: Small dependent gallstone is seen in gallbladder axial image 30. No surrounding inflammator y changes are present. PANCREAS: No significant abnormality is seen. SPLEEN: No significant abnormality is seen. ADRENALS: No significant abnormality is seen. KIDNEYS: No significant abnormality is seen. BOWEL: Oral contrast reaches level of terminal ileum making evaluation of distal bowel slightly subop timal. Cecum is slightly low lying into the right pelvis. There is no suspicious small or large bowel dilatation. UTERUS/ADNEXA: Anteverted uterus is seen. Ovaries are normal in size. Few scattered pelvic phlebolith s are noted. LYMPH NODES: No greater than 1cm abdominal or pelvic lymph nodes are appreciated. OSSEOUS STRUCTURES: Mild to moderate disc space narrowing L5-S1 level is present. OTHER: No significant additional abnormality is seen. IMPRESSION: No significant acute finding is seen to account for patient's clinical symptoms.
== END | disposition home or self-care (01) ==
LOC: RADCTMAIN 15:53
PROVIDERS: ATTEND Family Medicine
DX: R10.9 Unspecified abdominal pain (principal)
CPT/HCPCS: 74177; Q9967

== ENCOUNTER → 2018-11-02 | Outpatient (CLI) | payer BC ==
[2018-11-04 11:43] LABS: Lyme IgG/IgM 0.19 Index
== END | disposition home or self-care (01) ==
LOC: LABWHC1 16:56
PROVIDERS: ATTEND Clinical Nurse Specialist Women's Health
DX: R53.83 Other fatigue (principal)
CPT/HCPCS: 36415; 86618

== ENCOUNTER → 2018-12-09 | Outpatient (CLI) | payer BC ==
--- NOTE | 2018-12-12 13:45 | MM ---
Reason for exam: screening (asymptomatic). Last mammogram was performed 1 year and 8 months ago. History: Taking hormonal contraceptives beginning at age 20. Physical Findings: A clinical breast exam by your physician is recommended on an annual basis and results should be correlated with mammographic findings. MG 3D Screening Mammo W/Cad Bilateral CC and MLO view(s) were taken. Prior study comparison: April 16, 2017, bilateral MG 3d screening mammo w/cad. August 14, 2011, [facility] DIGITAL LEFT BREAST MAMMOGRAM w/CAD. The breast tissue is heterogeneously dense. This may lower the sensitivity of mammography. Focal asymmetry left MLO inferior. This finding is changed when compared with previous exams. ASSESSMENT: Incomplete: need additional imaging evaluation, BI-RAD 0 RECOMMENDATION: Special view mammogram of the left breast. If lesion persists on supplemental views, image directed ultrasound is recommended. [facility] will attempt to contact patient to return for supplemental views and ultrasound if indicated.
== END | disposition home or self-care (01) ==
LOC: RADMAMWWP 14:17
PROVIDERS: ATTEND Obstetrics & Gynecology
DX: Z12.31 Encounter for screening mammogram for malignant neoplasm of breast (principal)
CPT/HCPCS: 77063; 77067

== ENCOUNTER → 2018-12-23 | Outpatient (CLI) | payer BC ==
--- NOTE | 2018-12-26 11:59 | MM ---
Reason for exam: additional evaluation requested from abnormal screening. Last mammogram was performed less than 1 month ago. History: Taking hormonal contraceptives beginning at age 20. Physical Findings: Nurse Summary: 0.5cm nodule in the left breast at 1 o'clock (nurse mj). MG 3D Work Up W/Cad LT Spot compression CC, spot compression MLO, and ML view(s) were taken of the left breast. Prior study comparison: December 09, 2018, bilateral MG 3d screening mammo w/cad. April 16, 2017, bilateral MG 3d screening mammo w/cad. The breast tissue is heterogeneously dense. This may lower the sensitivity of mammography. The previously seen abnormality resolves on additional views and appears as fibroglandular tissue compatible with summation. These results were verbally communicated with the patient and result sheet given to the patient on 12/23/18. ASSESSMENT: Incomplete: need additional imaging evaluation, BI-RAD 0 RECOMMENDATION: Ultrasound of the left breast. (upper outer quadrant and retroareolar at patient's pain)
--- NOTE | 2018-12-26 12:00 | USB ---
Reason for exam: additional evaluation requested from abnormal screening. History: Taking hormonal contraceptives beginning at age 20. US Breast Workup Limited LT Left limited breast ultrasound including focal area of concern, retroareolar and axilla demonstrates no cystic or solid lesion seen. These results were verbally communicated with the patient and result sheet given to the patient on 12/23/18. ASSESSMENT: Negative, BI-RAD 1 RECOMMENDATION: Return to routine screening mammogram schedule for both breasts. Manage on a clinical basis with regard to intermittent left upper outer quadrant palpable.
== END | disposition home or self-care (01) ==
LOC: RADMAMWWP 13:41
PROVIDERS: ATTEND Obstetrics & Gynecology
DX: R92.8 Other abnormal and inconclusive findings on diagnostic imaging of breast (principal)
CPT/HCPCS: 77061; 77065

== ENCOUNTER → 2019-03-17 | Outpatient (CLI) | payer BC ==
[2019-03-17 15:00] LABS: Basophils % (A) 1 %; Eosinophils # (A) 0.1 k/uL (0-0.7); Eosinophils % (A) 1 %; Lymphocytes # (A) 1.7 k/uL (1.0-4.8); Lymphocytes % (A) 32 %; MCH 28.4 pg (25.0-35.0); MCHC 31.5 g/dL (31.0-37.0); Mean Platelet Volume 9.9; Monocytes # (A) 0.3 k/uL (0-1.0); Monocytes % (A) 6 %; Neutrophils # (A) 3.2 k/uL (1.3-7.7); Neutrophils % (A) 58 %; Platelet Count 242 k/uL (150-450); RBC 4.23 m/uL (3.80-5.40); RDW 12.5 % (11.5-15.5); WBC 5.5 k/uL (3.8-10.6)
[2019-03-17 19:24] LABS: African American GFR (CKD) 90.1 (60.0-200.0); Albumin 4.6 g/dL (3.80-4.90); Albumin/Globulin Ratio 2.09 (1.60-3.17); Anion Gap 7.1 mmol/L (4.00-12.00); BUN/Creat Ratio 13.33 Ratio (12.00-20.00); Carbon Dioxide 26.9 mmol/L (21.6-31.8); Chol/HDL Ratio 2.63; Globulin 2.2 g/dL (1.6-3.3); Non-African American GFR(CKD) 77.8 (60.0-200.0); Potassium 3.9 mmol/L (3.5-5.5); Total Bilirubin 1.3 mg/dL (0.3-1.2); Total Protein 6.8 g/dL (6.2-8.2)
== END | disposition home or self-care (01) ==
LOC: LABWHC1 14:32
PROVIDERS: ATTEND Physician Assistant Medical
DX: Z00.00 Encounter for general adult medical examination without abnormal findings (principal); E55.9 Vitamin D deficiency, unspecified
CPT/HCPCS: 36415; 80053; 80061; 82306; 84443; 85025

== ENCOUNTER → 2021-02-05 | Outpatient (CLI) | payer BC ==
[2021-02-05 11:25] LABS: Basophils # (A) 0.03 X 10*3/uL (0.00-0.10); Basophils % (A) 0.6 %; Eosinophils # (A) 0.13 X 10*3/uL (0.04-0.35); Eosinophils % (A) 2.6 %; HCT 38.2 % (37.2-46.3); Lymphocytes # (A) 1.64 X 10*3/uL (0.90-5.00); Lymphocytes % (A) 32.2 %; MCH 29.3 pg (27.0-32.0); MCHC 31.4 g/dL (32.0-37.0); MCV 93.4 fL (80.0-97.0); Mean Platelet Volume 12.5 fL (9.5-12.2); Monocytes # (A) 0.46 X 10*3/uL (0.20-1.00); Neutrophils # (A) 2.82 X 10*3/uL (1.80-7.70); Neutrophils % (A) 55.4 %; Platelet Count 278 X 10*3/uL (140-440); RBC 4.09 X 10*6/uL (4.10-5.20); RDW 13.1 % (11.5-14.5); WBC 5.09 X 10*3/uL (4.50-10.00)
[2021-02-05 12:52] LABS: ALT 9 U/L (8-44); AST 13 U/L (13-35); African American GFR (CKD) 102.3 (60.0-200.0); Albumin 4.5 g/dL (3.8-4.9); Albumin/Globulin Ratio 1.81 (1.60-3.17); Alkaline Phosphatase 53 U/L (41-126); BUN/Creat Ratio 10.36 Ratio (12.00-20.00); Blood Urea Nitrogen 8.3 mg/dL (9.0-27.0); Calcium 9.4 mg/dL (8.7-10.3); Chloride 105 mmol/L (96-109); Chol/HDL Ratio 3.07 Ratio; Globulin 2.5 g/dL (1.6-3.3); Glucose 94 mg/dL (70-110); Non-African American GFR(CKD) 88.3 (60.0-200.0); Potassium 4.6 mmol/L (3.5-5.5); Sodium 139 mmol/L (135-145); Total Protein 6.9 g/dL (6.2-8.2); VLDL Calculation 16.06 mg/dL (5.00-40.00)
== END | disposition home or self-care (01) ==
LOC: LABWHC1 07:11
PROVIDERS: ATTEND Physician Assistant Medical
DX: Z00.00 Encounter for general adult medical examination without abnormal findings (principal); E55.9 Vitamin D deficiency, unspecified
CPT/HCPCS: 36415; 80053; 80061; 82306; 84443; 85025

== ENCOUNTER → 2021-02-07 | Outpatient (CLI) | payer BC ==
--- NOTE | 2021-02-11 09:09 | MM ---
Reason for exam: screening (asymptomatic). Last mammogram was performed 2 years and 2 months ago. History: Taking hormonal contraceptives beginning at age 20. Physical Findings: A clinical breast exam by your physician is recommended on an annual basis and results should be correlated with mammographic findings. MG 3D Screening Mammo W/Cad Bilateral CC and MLO view(s) were taken. Prior study comparison: December 09, 2018, bilateral MG 3d screening mammo w/cad. April 16, 2017, bilateral MG 3d screening mammo w/cad. The breast tissue is heterogeneously dense. This may lower the sensitivity of mammography. There is chronic nodularity in the right breast. No significant changes when compared with prior studies. ASSESSMENT: Benign, BI-RAD 2 RECOMMENDATION: Routine screening mammogram of both breasts in 1 year.
== END | disposition home or self-care (01) ==
LOC: RADMAMWWP 14:20
PROVIDERS: ATTEND Obstetrics & Gynecology
DX: Z12.31 Encounter for screening mammogram for malignant neoplasm of breast (principal)
CPT/HCPCS: 77063; 77067

== ENCOUNTER → 2022-03-13 | Outpatient (CLI) | payer MEDICAID ==
[2022-03-13 22:31] LABS: Basophils # (A) 0.02 X 10*3/uL (0.00-0.10); Basophils % (A) 0.3 %; Eosinophils # (A) 0.07 X 10*3/uL (0.04-0.35); Eosinophils % (A) 1.2 %; HCT 36.6 % (37.2-46.3); HGB 11.4 g/dL (12.0-15.0); Immature Grans, Automated 0.3 %; Lymphocytes # (A) 1.78 X 10*3/uL (0.90-5.00); MCH 28.6 pg (27.0-32.0); MCHC 31.1 g/dL (32.0-37.0); MCV 91.7 fL (80.0-97.0); Monocytes # (A) 0.46 X 10*3/uL (0.20-1.00); Monocytes % (A) 7.8 %; NRBC Per 100 WBC 0 /100 WBCS (0.0-0.0); Neutrophils # (A) 3.58 X 10*3/uL (1.80-7.70); Neutrophils % (A) 60.4 %; Platelet Count 247 X 10*3/uL (140-440); RBC 3.99 X 10*6/uL (4.10-5.20); RDW 13.5 % (11.5-14.5); WBC 5.93 X 10*3/uL (4.50-10.00)
[2022-03-13 23:19] LABS: ALT 9 U/L (8-44); AST 16 U/L (13-35); African American GFR (CKD) 91.9 (60.0-200.0); Albumin 4.5 g/dL (3.8-4.9); Albumin/Globulin Ratio 1.62 (1.60-3.17); Alkaline Phosphatase 43 U/L (41-126); BUN/Creat Ratio 11.25 Ratio (12.00-20.00); Blood Urea Nitrogen 9.8 mg/dL (9.0-27.0); Carbon Dioxide 21.5 mmol/L (20.0-27.5); Chloride 103 mmol/L (96-109); Chol/HDL Ratio 3.08 Ratio; Globulin 2.8 g/dL (1.6-3.3); Glucose 78 mg/dL (70-110); Non-African American GFR(CKD) 79.3 (60.0-200.0); Potassium 3.6 mmol/L (3.5-5.5); Sodium 139 mmol/L (135-145); Total Protein 7.3 g/dL (6.2-8.2)
== END | disposition home or self-care (01) ==
LOC: LABWHC1 14:27
PROVIDERS: ATTEND Physician Assistant Medical
DX: Z00.00 Encounter for general adult medical examination without abnormal findings (principal); Z13.21 Encounter for screening for nutritional disorder
CPT/HCPCS: 36415; 80053; 80061; 82306; 84443; 85025

== ENCOUNTER → 2022-05-22 | Outpatient (CLI) | payer MEDICAID ==
[2022-05-22 18:59] LABS: Basophils # (A) 0.03 X 10*3/uL (0.00-0.10); Basophils % (A) 0.5 %; Eosinophils # (A) 0.05 X 10*3/uL (0.04-0.35); Eosinophils % (A) 0.8 %; HCT 38.5 % (37.2-46.3); HGB 12.5 g/dL (12.0-15.0); Immature Grans, Automated 0.3 %; Lymphocytes # (A) 2.28 X 10*3/uL (0.90-5.00); Lymphocytes % (A) 36.3 %; MCH 29.2 pg (27.0-32.0); MCHC 32.5 g/dL (32.0-37.0); Mean Platelet Volume 12.5 fL (9.5-12.2); Monocytes # (A) 0.47 X 10*3/uL (0.20-1.00); Monocytes % (A) 7.5 %; NRBC Per 100 WBC 0 /100 WBCS (0.0-0.0); Neutrophils # (A) 3.43 X 10*3/uL (1.80-7.70); Neutrophils % (A) 54.6 %; Platelet Count 241 X 10*3/uL (140-440); RBC 4.28 X 10*6/uL (4.10-5.20); WBC 6.28 X 10*3/uL (4.50-10.00)
[2022-05-22 19:46] LABS: % Iron Saturation 25.73 (12.00-45.00); Ferritin 80.7 ng/mL (10.0-291.0)
== END | disposition home or self-care (01) ==
LOC: LABWHC1 14:09
PROVIDERS: ATTEND Physician Assistant Medical
DX: D64.9 Anemia, unspecified (principal)
CPT/HCPCS: 36415; 82607; 82728; 82746; 83540; 83550; 85025

== ENCOUNTER → 2023-11-19 | Outpatient (CLI) | payer MEDICAID ==
[2023-11-19 18:41] LABS: Basophils # (A) 0.03 X 10*3/uL (0.00-0.10); Basophils % (A) 0.5 %; Eosinophils # (A) 0.06 X 10*3/uL (0.04-0.35); HCT 37.2 % (37.2-50.0); HGB 12.2 g/dL (12.0-17.0); Lymphocytes # (A) 1.93 X 10*3/uL (0.90-5.00); MCH 29.5 pg (27.0-32.0); MCHC 32.8 g/dL (32.0-37.0); MCV 89.9 FL (80.0-97.0); Mean Platelet Volume 12.7 FL (9.5-12.2); Monocytes # (A) 0.45 X 10*3/uL (0.20-1.00); Monocytes % (A) 7.5 %; NRBC Per 100 WBC 0 X 10*3/uL (0.00-0.01); Neutrophils # (A) 3.55 X 10*3/uL (1.80-7.70); Neutrophils % (A) 58.8 %; Platelet Count 243 X 10*3/uL (140-440); RBC 4.14 X 10*6/uL (4.10-5.60); WBC 6.03 X 10*3/uL (4.50-10.00)
[2023-11-19 20:43] LABS: ALT 11 U/L (8-49); AST 15 U/L (13-35); Albumin 4.6 g/dL (3.8-4.9); Albumin/Globulin Ratio 1.77 Ratio (1.60-3.17); Alkaline Phosphatase 63 U/L (41-126); BUN/Creat Ratio 11.75 Ratio (12.00-20.00); Blood Urea Nitrogen 9.4 mg/dL (9.0-27.0); Carbon Dioxide 21.4 mmol/L (21.6-31.8); Chloride 103 mmol/L (96-109); Chol/HDL Ratio 2.76 Ratio; Globulin 2.6 g/dL (1.6-3.3); Glucose 75 mg/dL (70-110); LDL Cholesterol,Calculated 121.2 mg/dL (0.0-131.0); Potassium 3.7 mmol/L (3.5-5.5); Sodium 140 mmol/L (135-145); Total Bilirubin 1.2 mg/dL (0.3-1.2); Total Protein 7.2 g/dL (6.2-8.2); VLDL Calculation 13.92 mg/dL (5.00-40.00)
== END | disposition home or self-care (01) ==
LOC: LABWHC1 13:48
PROVIDERS: ATTEND Physician Assistant Medical
DX: Z00.00 Encounter for general adult medical examination without abnormal findings (principal); Z79.899 Other long term (current) drug therapy
CPT/HCPCS: 36415; 80053; 80061; 82306; 84443; 85025

== ENCOUNTER → 2023-11-19 | Outpatient (CLI) | payer MEDICAID ==
--- NOTE | 2023-11-22 14:49 | MM ---
Reason for Exam: Screening (asymptomatic). Last mammogram was performed 2 year(s) and 9 month(s) ago. Patient History: Menarche at age 15. First Full-Term at age 27. Currently using Hormonal Contraceptives, starting at age 20. Risk Values: Daily 5 year model risk: 0.9%. NCI Lifetime model risk: 9.2%. Prior Study Comparison: 12/09/2018 Bilateral Screening Mammogram, [facility]. 12/23/2018 Left Diagnostic Mammogram, [facility]. 02/07/2021 Bilateral Screening Mammogram, [facility]. Tissue Density: The breasts are heterogeneously dense, which may obscure small masses. Findings: Analyzed By CAD. The pattern is symmetrical. No Significant interval change. No suspicious groups of microcalcifications, spiculated or lobular masses, architectural distortion or other secondary signs of malignancy are mammographically apparent. Overall Assessment: Benign, BI-RAD 2 Management: Screening Mammogram of both breasts in 1 year. A negative mammogram report should not preclude additional follow up of suspicious palpable abnormalities. Patient should continue monthly self breast exam. A clinical breast exam by your physician is recommended on an annual basis and results should be correlated with mammographic findings. Note on Daily scores and lifetime risk: 1. A Daily score greater than 3% is considered moderate risk. If this is the case, consider specialist referral to assess eligibility for a risk reducing agent. 2. If overall lifetime risk for the development of breast cancer is 20% or higher, the patient may qualify for future screening with alternating mammogram and breast MRI. [facility], , 11/21/2023 1:16 PM . Electronically signed and approved by: Cedrick Aranda D.O. Radiologis
== END | disposition home or self-care (01) ==
LOC: RADMAMWWP 13:58
PROVIDERS: ATTEND Obstetrics & Gynecology
CPT/HCPCS: 77063; 77067